=== PATIENT | female | born 2005 | race Two or more races ===

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

== ENCOUNTER 2023-02-04 18:26 | Emergency (ER) | payer MEDICAID ==
[2023-02-04] MEDS ORDERED: Loperamide 2 MG Cap PO STA (19:39)
[2023-02-04] MEDS ORDERED: Ondansetron 4 MG/2 ML SDV IVPUSH ONE (19:39)
[2023-02-04] MEDS ORDERED: Sodium Chloride 0.9% 1,000 ML IV ONE (19:39)
[2023-02-04 20:26] LABS: ESTIMATED GFR 128 mL/min (>60)
[2023-02-04] MEDS ORDERED: Acetaminophen 325 MG Tab PO ONE (20:47)
[2023-02-04 20:56] LABS: CORONAVIRUS COVID-19 NAA NEGATIVE (NEGATIVE)
== END 2023-02-04 21:51 | disposition home or self-care (01) ==
LOC: JD.ED 18:26
DX: A08.4 Viral intestinal infection, unspecified (principal); E83.42 Hypomagnesemia; Z86.16 Personal history of COVID-19; Z20.822 Contact with and (suspected) exposure to COVID-19
CPT/HCPCS: 0241U; 36415; 80053; 83690; 83735; 85007; 85027; 86140; 96361; 96374; 99284; A9270; J2405; J7030

== ENCOUNTER 2023-02-23 06:00 | Day surgery (SDC) | payer MEDICAID ==
[~2023-02-23 06:00] MED LIST: Lactated Ringers 1,000 ML IV SCH; Lidocaine 1%/Sod Bicarbonate in NS 8.4% 1 ML Syringe IDERM PRN; Sodium Chloride 0.9% 10 ML Syringe FLUSH PRN; Sodium Chloride 0.9% 10 ML Syringe FLUSH SCH
[2023-02-23] MEDS ORDERED: Bupivacaine 0.25% 10 ML SDV ONE (06:37)
[2023-02-23] MEDS ORDERED: Lidocaine 0.5% 50 ML SDV ONE (06:39)
[2023-02-23] MEDS ORDERED: Midazolam 1 MG/ML 2 ML SDV ONE (06:39)
[2023-02-23] MEDS ORDERED: ceFAZolin 2 GM Vial ONE (06:39)
[2023-02-23] MEDS ORDERED: fentaNYL 100 MCG/2 ML SDV IVPUSH PRN (06:55)
[2023-02-23] MEDS ORDERED: Ondansetron 4 MG/2 ML SDV IVPUSH PRN (06:55)
[2023-02-23] MEDS ORDERED: Propofol 200 MG/20 ML SDV ONE (07:01)
== END 2023-02-23 09:00 | disposition home or self-care (01) ==
LOC: JD.SDS 06:00
PROVIDERS: ATTEND Orthopaedic Surgery
DX: M67.431 Ganglion, right wrist (principal); F41.9 Anxiety disorder, unspecified; D64.9 Anemia, unspecified; E55.9 Vitamin D deficiency, unspecified; F32.A Depression, unspecified; Z79.899 Other long term (current) drug therapy
CPT/HCPCS: 25111; J0690; J2250; J2704; J3490; J7120; 01810

== ENCOUNTER 2023-05-20 20:37 | Emergency (ER) | payer SELFPAY ==
[2023-05-20] MEDS ORDERED: Ketorolac 30 MG/ML SDV IM ONE (21:06)
== END 2023-05-20 21:40 | disposition home or self-care (01) ==
LOC: JD.ED 20:37
DX: J01.90 Acute sinusitis, unspecified (principal); Z86.16 Personal history of COVID-19
CPT/HCPCS: 96372; 99283; J1885